=== PATIENT | male | born 1960 | race Caucasian/White ===

== ENCOUNTER 2017-04-28 14:45 | Emergency (ER) | payer SELFPAY ==
[~2017-04-28] VITALS: Ht 182.9 cm; Wt 68.0 kg
[~2017-04-28 14:45] MED LIST: IBUP600T26 PO
[2017-04-28 14:47] VITALS: BP 167/112; PULSE 91; RESP 20; TEMP 98.5; O2SAT 98
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
[2017-04-28] MEDS ORDERED: BACT800T5 PO (15:10)
== END 2017-04-28 15:52 | disposition home or self-care (01) ==
LOC: NEPK 14:45
DX: L03.115 Cellulitis of right lower limb (principal); S80.812A Abrasion, left lower leg, initial encounter; S80.811A Abrasion, right lower leg, initial encounter; Z79.899 Other long term (current) drug therapy; X58.XXXA Exposure to other specified factors, initial encounter
CPT/HCPCS: 99283

== ENCOUNTER 2017-06-18 18:53 | Emergency (ER) | payer SELFPAY ==
[~2017-06-18] VITALS: Ht 182.9 cm; Wt 77.0 kg
[~2017-06-18 18:53] MED LIST changes: +BACT800T5 PO
[2017-06-18 18:55] VITALS: BP 144/96; PULSE 85; RESP 16; TEMP 98.6; O2SAT 98
[2017-06-18] MEDS ORDERED: KETOROLAC TROMETHAMINE 60 MG/2 ML (IM) VIAL IM ONE (19:30)
[2017-06-18] MEDS ORDERED: ceFAZolin INJ 1,000 MG VIAL IM ONE (19:30)
[2017-06-18] MEDS ORDERED: MUPI2OIN TOPICAL (19:32)
[2017-06-18] MEDS ORDERED: IBUP800T23 PO (19:32)
[2017-06-18] MEDS ORDERED: BACT800T5 PO (19:32)
[2017-06-18] MEDS ORDERED: CEPH-460 PO (19:32)
--- NOTE | 2017-06-18 19:32 | PD ---
HPI Chief Complaint: Skin Problem Time Seen by Provider: 19:18 Travel History International Travel<30 days: No Contact w/Intl Traveler<30days: No Traveled to known affect area: No History of Present Illness HPI Patient is a 37-year-old male presenting for evaluation of left knee redness and pain. Patient states since 1 PM this afternoon he has had increasing redness to the left knee. He states it's painful and warm to the touch. He denies any fever, chills, nausea, vomiting, headache. He reports a history of same in April. He denies any significant past medical history. Patient has a small abrasion in the center of the area of redness. He denies any trauma to the knee itself. Patient reports pain is a 7/10 and describes it as sore and aching. PFSH Past Medical History Medical History: Denies Significant Hx Diminished Hearing: No Inguinal Hernia: Yes Immunizations Current: Yes Tetanus Vaccination: < 5 Years Past Surgical History Abdominal Surgery: Yes (HERNIA ) Other Surgery: Yes ( NOSE) Social History Alcohol Use: Yes (OCCASSIONALLY) Tobacco Use: No Substance Use: No Allergies-Medications (Allergen,Severity, Reaction): Coded Allergies: No Known Allergies (Unverified , 06/18/17) Reported Meds & Prescriptions Reported Meds & Active Scripts Active No Active Prescriptions or Reported Medications Review of Systems Except as stated in HPI: all other systems reviewed are Neg Musculoskeletal: Positive: Pain Skin: Positive Change in Pigmentation, Positive Lesions Physical Exam Narrative GENERAL: Well-developed, well-nourished, alert male. Resting comfortably in no acute distress. SKIN: Warm and dry. 17 cm x 10 cm area of erythema medial and distal to the left knee. There is a 3 mm pustule in the center. Otherwise there is no fluctuance appreciated. It is warm to the touch a moderately tender to palpation. HEAD: Normocephalic. EYES: No scleral icterus. No injection or drainage. NECK: Supple, trachea midline. No JVD or lymphadenopathy. CARDIOVASCULAR: Regular rate and rhythm without murmurs, gallops, or rubs. RESPIRATORY: Breath sounds equal bilaterally. No accessory muscle use. GASTROINTESTINAL: Abdomen soft, non-tender, nondistended. MUSCULOSKELETAL: No cyanosis, or edema. No edema noted in the left calf, patient is neurovascularly intact with negative Homans sign. BACK: Nontender without obvious deformity. No CVA tenderness. Data Data Last Documented VS Vital Signs Date Time Temp Pulse Resp B/P (MAP) Pulse Ox O2 Delivery O2 Flow Rate FiO2 06/18/17 18:55 98.6 85 16 144/96 (112) 98 Orders Orders Wound Culture And Gram Stain (06/18/17 19:16) Cefazolin Inj (Ancef Inj) (06/18/17 19:30) Ketorolac Inj (Toradol Inj) (06/18/17 19:30) MDM Medical Decision Making Medical Screen Exam Complete: Yes Emergency Medical Condition: Yes Medical Record Reviewed: Yes Interpretation(s) Vital Signs Date Time Temp Pulse Resp B/P (MAP) Pulse Ox O2 Delivery O2 Flow Rate FiO2 06/18/17 18:55 98.6 85 16 144/96 (112) 98 Differential Diagnosis Cellulitis versus abscess versus contact dermatitis versus septic arthritis versus other Narrative Course Patient is a 57-year-old male presenting for evaluation of left knee redness and pain. Physical examination appears consistent with cellulitis, the knee itself is not swollen the area of redness is more medial and distal. Area was marked. Patient's vital signs are stable, he is afebrile and he is not tachycardic. Patient will be given dose of Ancef in the emergency department. A wound culture has been obtained and is pending. Patient was also given Toradol for pain. Patient was advised to return to emergency department immediately for any new or worsening symptoms. He was advised to return if area of redness continued to increase despite being on antibiotic therapy. He was encouraged to rest, elevate extremity. He was encouraged to avoid exacerbating activities. He verbalized understanding of these instructions. Patient is stable for discharge. Diagnosis Primary Impression: Cellulitis of skin Referrals: Primary Care Physician 1 day Patient Instructions: Cellulitis (ED), General Instructions Additional Instructions: Follow-up with your primary doctor in 1-2 days Complete full course of antibiotics as prescribed Keep leg elevated Return to emergency department immediately for any new or worsening symptoms or if symptoms do not improve despite being on antibiotic therapy Med/Other Pt SpecificInfo: Prescription(s) given Scripts Ibuprofen (Ibuprofen) 800 Mg Tab 800 MG PO Q6HR Y for PAIN, #40 TAB 0 Refills Prov: Katie Couch 06/18/17 Mupirocin Topical (Mupirocin Topical) 2 % Oint 1 APPLIC TOPICAL BID for Mgmt Bacterial Infection, #22 GM 0 Refills Prov: Katie Couch 06/18/17 Cephalexin (Keflex) 500 Mg Cap 500 MG PO Q12H for Infection for 10 Days, CAP 0 Refills Prov: Katie Couch 06/18/17 Sulfamethoxazole-Trimethoprim (Bactrim DS) 800-160 Mg Tab 1 TAB PO BID for Infection, #20 TAB 0 Refills Prov: Katie Couch 06/18/17 Disposition: 01 DISCHARGE HOME Condition: Stable Katie Couch Jun 18, 2017 19:32
== END 2017-06-18 20:07 | disposition home or self-care (01) ==
LOC: NEPK 18:53
DX: L03.116 Cellulitis of left lower limb (principal); A49.02 Methicillin resistant Staphylococcus aureus infection, unspecified site
CPT/HCPCS: 86403; 87070; 87186; 96372; 96374; 99284; J0690; J1885; 87205

== ENCOUNTER 2018-07-18 20:23 | Observation (INO) ==
[2018-07-18 21:17] LABS: Baso # (Auto) 0.1 th/mm3 (0.0-0.2); Baso % (Auto) 0.5 % (0.0-2.0); Eos % (Auto) 0.1 % (0.0-4.0); Hematocrit 39.2 % (39.0-51.0); Hemoglobin 13.2 gm/dL (13.0-17.0); Lymph # (Auto) 0.9 th/mm3 (1.0-4.8); Lymph % (Auto) 7.9 % (9.0-44.0); Mean Corpuscular HGB Conc 33.8 % (32.0-36.0); Mean Corpuscular Hemoglobin 31.2 pg (27.0-34.0); Mean Corpuscular Volume 92.4 fL (80.0-100.0); Mean Platelet Volume 8.7 fL (7.0-11.0); Mono # (Auto) 0.5 th/mm3 (0.0-0.9); Mono % (Auto) 4.4 % (0.0-8.0); Neut # (Auto) 9.6 th/mm3 (1.8-7.7); Neut % (Auto) 87.1 % (16.0-70.0); Platelet Count 162 th/mm3 (150-450); Red Blood Count 4.25 mil/mm3 (4.50-5.90); Red Cell Distribution Width 16.8 % (11.6-17.2)
[2018-07-18 21:29] LABS: Activated Partial Thrombo Time 21.7 sec (24.3-30.1); INR 1.1 Ratio; Prothrombin Time 11.3 sec (9.8-11.6)
--- NOTE | 2018-07-18 21:32 | XR ---
EXAM DATE: 07/18/2018 8:52 PM EDT AGE/SEX: 58 years / Male INDICATIONS: Chest pain. CLINICAL DATA: This is the patient's initial encounter. Patient reports that signs and symptoms have been present for 1 day and indicates a pain score of 0/10. MEDICAL/SURGICAL HISTORY: None. None. COMPARISON: [facility] [place] [facility] [place], 05/28/2016. . FINDINGS: A single AP view of the chest demonstrates the lungs to be symmetrically aerated without evidence of mass, infiltrate or effusion. The cardiomediastinal contours are unremarkable. Osseous structures a re intact. CONCLUSION: No evidence of acute cardiopulmonary disease. Electronically signed by: Adin Garcia MD 07/18/2018 9:30 PM EDT
[2018-07-18 21:36] LABS: Alanine Aminotransferase 40 U/L (12-78); Albumin 3.5 g/dL (3.4-5.0); Anion Gap 15 meq/L (5-15); Aspartate Aminotransferase 46 U/L (15-37); Blood Urea Nitrogen 5 mg/dL (7-18); Calcium 7.8 mg/dL (8.5-10.1); Carbon Dioxide 23.7 meq/L (21.0-32.0); Chloride 99 meq/L (98-107); Glomerular Filtration Rate Greater Than 89 mL/min (>89); Glucose,Random 71 mg/dL (74-106); Potassium 3.2 meq/L (3.5-5.1); Sodium 138 meq/L (136-145)
[2018-07-18 21:40] LABS: Alkaline Phosphatase 61 U/L (45-117); Creatine Kinase 308 U/L (39-308); Total Protein 6.8 g/dL (6.4-8.2)
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
[2018-07-18] MEDS ORDERED: Famotidine PF Inj 20 MG/2 ML Vial IV.PUSH ONE (21:56)
[2018-07-18] MEDS ORDERED: Acetaminophen 500 MG Tablet PO ONE (21:56)
[2018-07-18 23:28] LABS: Creatine Kinase 280 U/L (39-308)
[2018-07-19 03:53] LABS: Creatine Kinase 254 U/L (39-308)
[2018-07-19] MEDS ORDERED: Potassium Chloride 10 MEQ ER Capsule PO ONE (08:03)
[2018-07-19] MEDS ORDERED: Haloperidol Inj 5 MG/ML Ampul IV.PUSH PRN (08:36)
[2018-07-19] MEDS ORDERED: Sodium Chloride 0.9% 2 ML Flush PRN IV.FLUSH (08:52)
[2018-07-19] MEDS: Sodium Chloride 0.9% 2 ML Flush BID IV.FLUSH SCH ×2 (09:49→20:23)
[2018-07-19] MEDS ORDERED: Regadenoson Inj 0.4 MG/5 ML Syringe IV.PUSH ONE (09:52)
--- NOTE | 2018-07-19 10:30 | P.HPCA ---
History of Present Illness Primary Care Physician: Terri Lund MD Chief Complaint: Chest pain History of Present Illness: This is a 58-year-old male that presents to ED with a complaint of yesterday developing a sharp left-sided chest discomfort while mowing his neighbor's yard. He was short of breath and nauseous. Denies any noticeable diaphoresis. States lasted about 20-30 minutes. 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 Cannot recall prior cardiac workup but states his heart disease in his family however it is late onset. States that his mother of heart failure but in her 80s. Currently denies discomforts. Denies hypertension, hyperlipidemia, diabetes, and CAD. Admits to alcohol abuse. His mother at age 84 of heart failure. Drinks on average 4-6 16 ounce beers daily. Denies illicit drug use. Quit smoking 1 year ago. Prior to that he smoked on average 2 cigarettes a day for about a year and a half. - Diagnosis (1) Chest pain (2) Alcohol abuse Review of Systems General: Patient denies fevers, chills, and recent travel. HEENT: Patient denies headache, sore throat, difficulty swallowing. Cardiovascular: Has the chest discomfort as mentioned above. Denies sensation of heart beating rapidly or irregularly. No syncope. Denies diaphoresis. Respiratory: He was short of breath. Denies inspirational chest discomfort. Denies coughing wheezing or hemoptysis. GI: He was nauseous. Patient denies vomiting, diarrhea, abdominal pain, bloody stools. Musculoskeletal: Patient denies joint pain or edema. Denies calf pain or edema. Neurovascular: Patient denies numbness, tingling, weakness in extremities. Denies headache. Endocrine: Denies polyuria and polydipsia. Hematologic: Denies easy bruising. Skin: Denies rash or itching. PMFSH - History History Provided By: Patient - Medical History Medical History: Medical History (Last Updated 07/18/18 @ 20:39 by Michelle Napier RN) Patient denies medical problems - Surgical History Surgical History: Surgical History (Last Updated 07/18/18 @ 20:39 by Michelle Napier RN) No history of previous surgery - Tobacco History Second Hand Smoke Exposure: No Tobacco Use In Past 30 Days: No Smoking Status: Former smoker Tobacco Type: Cigarettes - Alcohol History How Often Do You Have a Drink Containing Alcohol: 4 or more times a week - Substance Use History Substance History: No History of Abuse - Travel History Recent Travel in the [place] Within the Last 8 Weeks: No Recent Travel Out of the Country Within the Last 8 Weeks: No - Immunization History Tetanus Immunization: <5 Years Medications and Allergies Active Medications: Active Medications Flumazenil (Romazecon Inj) 0.2 mg IV.PUSH Q1M PRN PRN Reason: OVERSEDATION Haloperidol Lactate (Haldol Inj) 1 mg IV.PUSH Q15M PRN PRN Reason: for severe agitation Lorazepam (Ativan) 1 mg PO Q4H PRN PRN Reason: for CIWA 8-10 Lorazepam (Ativan) 2 mg PO Q2H PRN PRN Reason: for CIWA 11-14 Lorazepam (Ativan Inj) 2 mg IV.PUSH Q2H PRN PRN Reason: for CIWA 11-14 Last Admin: 07/19/18 08:57 Dose: 2 mg Lorazepam (Ativan Inj) 2 mg IV.PUSH Q1H PRN PRN Reason: for CIWA 15-20 Lorazepam (Ativan Inj) 2 mg IV.PUSH Q15M PRN PRN Reason: for CIWA > 20 Lorazepam (Ativan Inj) 1 mg IV.PUSH Q4H PRN PRN Reason: for CIWA 8-10 Sodium Chloride (Ns Flush) 2 ml IV.FLUSH BID CHEL Last Admin: 07/19/18 09:49 Dose: 2 ml Sodium Chloride (Ns Flush) 2 ml IV.FLUSH PRN PRN PRN Reason: FLUSH AFTER USING IV ACCESS Allergies Allergy/AdvReac Type Severity Reaction Status Date / Time No Known Allergies Allergy Uncoded 06/18/17 19:16 Home Medications Medication Instructions Recorded Confirmed Type trazodone 50 mg PO HS PRN 07/19/18 07/19/18 History Exam Vital signs: Vital Signs 07/18/18 20:38 07/18/18 21:36 07/18/18 23:38 Temperature 99.8 F H Pulse Rate 106 H 82 Respiratory Rate 20 18 16 Blood Pressure 163/101 H 148/86 H Pulse Oximetry 97 97 07/19/18 00:00 07/19/18 04:00 07/19/18 04:33 Temperature 98.5 F 98.5 F Pulse Rate 31 L 59 L 60 Respiratory Rate 16 18 Blood Pressure 120/82 117/71 Pulse Oximetry 95 98 07/19/18 07:58 07/19/18 08:00 Temperature 100.1 F H Pulse Rate 76 Respiratory Rate 16 Blood Pressure 145/94 H Pulse Oximetry 96 97 Intake & Output 07/18/18 07/19/18 07/19/18 18:59 06:59 18:59 Weight 72 kg Other: # Voids 2 Date of Last Bowel Movement 07/19/18 Narrative: GENERAL: He is a little tremulous during examination. This is a well-nourished , well-developed patient, in no apparent distress. Patient speaks in clear complete sentences. Patient is pleasant. HEENT: Head is atraumatic and normocephalic. Neck is supple without lymphadenopathy and trachea is midline. No JVD or carotid bruits. CARDIOVASCULAR: Regular rate and rhythm without murmurs, gallops, or rubs. RESPIRATORY: Clear to auscultation. Breath sounds equal bilaterally. No wheezes , rales, or rhonchi. Chest wall is nontender. No use of accessory muscles. GASTROINTESTINAL: Abdomen is nontender, nondistended. Abdomen soft. No obvious pulsatile mass or bruit. No CVA tenderness. Strong femoral pulses bilaterally. Normal bowel sounds in all quadrants. MUSCULOSKELETAL: Patient is moving upper and lower extremities freely. No calf tenderness or edema, no Homans sign. Strong pulses in upper and lower extremities. NEUROLOGICAL: Patient is alert and oriented. Cranial nerves 2-12 are grossly intact. No focal deficits and speech is clear. SKIN: No rash and turgor is normal. Results 07/18/18 21:00 07/18/18 21:00 Cardiac Enzymes 07/18/18 07/18/18 07/18/18 Range/Units 21:00 21:00 22:55 AST 46 H (15-37) U/L CK-MB (CK-2) 2.0 (0.5-3.6) ng/mL Troponin I Less than 0.02 L Less than 0.02 L (0.02-0.05) ng/mL B-Natriuretic Peptide 62 (0-100) pg/mL 07/19/18 Range/Units 03:15 AST (15-37) U/L CK-MB (CK-2) (0.5-3.6) ng/mL Troponin I Less than 0.02 L (0.02-0.05) ng/mL B-Natriuretic Peptide (0-100) pg/mL Coagulation 07/18/18 07/18/18 Range/Units 21:00 21:00 PT 11.3 (9.8-11.6) sec APTT 21.7 L (24.3-30.1) sec B-Natriuretic Peptide 62 (0-100) pg/mL CBC 07/18/18 Range/Units 21:00 WBC 11.0 (4.0-11.0) th/mm3 RBC 4.25 L (4.50-5.90) mil/mm3 Hgb 13.2 (13.0-17.0) gm/dL Hct 39.2 (39.0-51.0) % Plt Count 162 (150-450) th/mm3 Neut # (Auto) 9.6 H (1.8-7.7) th/mm3 Lymph # (Auto) 0.9 L (1.0-4.8) th/mm3 [place] # (Auto) 0.5 (0.0-0.9) th/mm3 Eos # (Auto) 0.0 (0.0-0.4) th/mm3 Baso # (Auto) 0.1 (0.0-0.2) th/mm3 Comprehensive Metabolic Panel 07/18/18 Range/Units 21:00 Sodium 138 (136-145) meq/L Potassium 3.2 L (3.5-5.1) meq/L Chloride 99 (98-107) meq/L Carbon Dioxide 23.7 (21.0-32.0) meq/L BUN 5 L (7-18) mg/dL Creatinine 0.58 L (0.60-1.30) mg/dL Calcium 7.8 L (8.5-10.1) mg/dL AST 46 H (15-37) U/L ALT 40 (12-78) U/L Alkaline Phosphatase 61 (45-117) U/L Total Protein 6.8 (6.4-8.2) g/dL Albumin 3.5 (3.4-5.0) g/dL Intake and Output 07/18/18 07/19/18 07/19/18 22:59 06:59 14:59 Other: # Voids 2 Date of Last Bowel Movement 07/19/18 Weight 72 kg - Imaging and Cardiology Imaging: Impressions Chest X-Ray 07/18/18 20:52 CONCLUSION: No evidence of acute cardiopulmonary disease. EKG interpretations - EKG EKG shows: bradycardia (EKGs are sinus rhythm sinus bradycardia without significant ST segment depressions or elevations.), sinus rhythm Caprini VTE Risk Assessment Caprini VTE Risk Assessment: No/Low Risk (score <= 1) Caprini Risk Assessment Model: Point Value = 1 Point Value = 2 Point Value = 3 Point Value = 5 Age 41-60 Minor surgery BMI > 25 kg/m2 Swollen legs Varicose veins or History of unexplained or recurrent spontaneous Oral contraceptives or hormone replacement Sepsis (< 1 month) Serious lung disease, including pneumonia (< 1 month) Abnormal pulmonary function Acute myocardial infarction Congestive heart failure (< 1 month) History of inflammatory bowel disease Medical patient at bed rest Age 61-74 Arthroscopic surgery Major open surgery (> 45 min) Laparoscopic surgery (> 45 min) Malignancy Confined to bed (> 72 hours) Immobilizing plaster cast Central venous access Age >= 75 History of VTE Family history of VTE Factor V Leiden Prothrombin [id number] Lupus anticoagulant Anticardiolipin antibodies Elevated serum homocysteine Heparin-induced thrombocytopenia Other congenital or acquired thrombophilia Stroke (< 1 month) Elective arthroplasty Hip, pelvis, or leg fracture Acute spinal cord injury (< 1 month) Prophylaxis Regimen: Total Risk Factor Score Risk Level Prophylaxis Regimen 0-1 Low Early ambulation 2 Moderate Order ONE of the following: *Sequential Compression Device (SCD) *Heparin 5000 units SQ BID 3-4 Higher Order ONE of the following medications: *Heparin 5000 units SQ TID *Enoxaparin/Lovenox 40 mg SQ daily (WT < 150 kg, CrCl > 30 mL/min) *Enoxaparin/Lovenox 30 mg SQ daily (WT < 150 kg, CrCl > 10-29 mL/min) *Enoxaparin/Lovenox 30 mg SQ BID (WT < 150 kg, CrCl > 30 mL/min) AND/OR *Sequential Compression Device (SCD) 5 or more Highest Order ONE of the following medications: *Heparin 5000 units SQ TID (Preferred with Epidurals) *Enoxaparin/Lovenox 40 mg SQ daily (WT < 150 kg, CrCl > 30 mL/min) *Enoxaparin/Lovenox 30 mg SQ daily (WT < 150 kg, CrCl > 10-29 mL/min) *Enoxaparin/Lovenox 30 mg SQ BID (WT < 150 kg, CrCl > 30 mL/min) AND *Sequential Compression Device (SCD) Assessment and Plan - Assessment (1) Chest pain Code(s): R07.9 - Chest pain, unspecified Status: Acute (2) Alcohol abuse Code(s): F10.10 - Alcohol abuse, uncomplicated Status: Acute - Plan * Chest pain: Patient has had serial cardiac enzymes and EKGs for ruling out purposes. He will be seen by Dr. Wen cardiology in the chest pain center. Will undergo a Lexiscan. Be discharged home if the stress test is nonischemic with instructions to follow-up with PCP and return to ED for interval issues. * Alcohol abuse: We will use CIWA precautions. He needs to get help with his alcohol abuse. Patient is stable at this time. Is agreeable to this plan. H&P: Quality - VTE Deep Vein Thrombosis/Pulmonary Embolism Present on Admission: No
--- NOTE | 2018-07-19 12:05 | NM ---
EXAM DATE: 07/19/2018 9:46 AM EDT AGE/SEX: 58 years / Male INDICATIONS:Angina. . Left chest pain. CLINICAL DATA: This is the patient's initial encounter. Patient reports that signs and symptoms have been present for 1 day and indicates a pain score of 6/10. MEDICAL/SURGICAL HISTORY: None. None. COMPARISON: . DOSE: 8.8 mCi Tc 99m Myoview at rest 27.4 mCi [id number] at stress 0.4 mg Lexiscan STRESS SYMPTOMS: Weird feeling and abdominal pressure. EJECTION FRACTION: 65 % TECHNIQUE: The patient underwent pharmacologic stress with infusion of prescribed dose. Continuous ECG tracing was monitored during stress. Gated SPECT imaging was performed after stress and conventi onal SPECT imaging was performed at rest. The examination was performed on a SPECT/CT scanner, both attenuation and non-corrected datasets were reviewed. FINDINGS: Distribution: The maximum perfused segment at stress is in the inferior wall. There is less activity seen in the anterior septal tristan and portions of the apical inferior wall on the stress and rest im ages compared to the lateral wall and remaining aspect of the inferior wall. Perfusion Study: There is an area of mild increased signal on the rest images at the apical septum compared to the stress images. The perfusion otherwise appears better on the stress images throughout . Gated Study: There are intact wall motion and wall thickening without hypokinetic or dyskinetic segm ents. The ejection fraction is calculated at 65%. RISK CATEGORY: Low (<1% Annual Motality Rate) CONCLUSION: 1. Small area of mild increased activity in the apical portion of the septum on the rest images over the stress images which is borderline for a small area of ischemia. 2. The ejection fraction is normal. Electronically signed by: Adin Marr MD 07/19/2018 12:04 PM EDT
--- NOTE | 2018-07-19 13:36 | ECG ---
Date Performed: 07/19/2018 Time Performed: 03:00:02 PTAGE: 58 years EKG: SINUS BRADYCARDIA WITH SINUS ARRHYTHMIA PROLONGED QT INTERVAL ABNORMAL ECG PREVIOUS TRACING : 07/18/2018 23.15 Compared to previous tracing,QT interval is prolonged. DOCTOR: Jerry Wen Interpretating Date/Time 07/19/2018 13:34:46
--- NOTE | 2018-07-19 13:41 | ECG ---
Date Performed: 07/18/2018 Time Performed: 23:15:38 PTAGE: 58 years EKG: Sinus rhythm PROLONGED QT INTERVAL ABNORMAL ECG PREVIOUS TRACING : 07/18/2018 20.43 Since previous tracing, no significant change noted DOCTOR: Jerry Wen Interpretating Date/Time 07/19/2018 13:40:31
--- NOTE | 2018-07-19 13:44 | ECG ---
Date Performed: 07/18/2018 Time Performed: 20:43:29 PTAGE: 58 years EKG: SINUS TACHYCARDIA ABNORMAL RHYTHM ECG INTERPRETATION BASED ON A DEFAULT AGE OF 40 YEARS NO PREVIOUS TRACING DOCTOR: Jerry Wen Interpretating Date/Time 07/19/2018 13:42:09
[2018-07-19] MEDS: Metoprolol Tartrate 25 MG Tablet PO SCH ×2 (13:51→20:22)
--- NOTE | 2018-07-19 14:03 | TR ---
Date Performed: 07/19/2018 Time Performed: 10:23:04 DOCTOR: Jerry Wen DRUG LIST: CLINICAL HISTORY: REASON FOR TEST: CHEST PAIN REASON FOR ENDING: OBSERVATION: CONCLUSION: COMMENTS: Lexiscan stress test was performed under standard four minute protocol. Radionuclide was injected one minute prior to ending the test. No electrocardiographic abormalities were present t o suggest ischemia. Nuclear imaging and interpretation are pending.
--- NOTE | 2018-07-19 14:09 | P.PNIM ---
Subjective Interval history: in no acute distress. currently chest pain free and with no sob. had a low-grade fever earlier. complaining of weak urine stream but with no dysuria. Physical Exam Vital signs: Vital Signs 07/18/18 20:38 07/18/18 21:36 07/18/18 23:38 Temperature 99.8 F H Pulse Rate 106 H 82 Respiratory Rate 20 18 16 Blood Pressure 163/101 H 148/86 H Pulse Oximetry 97 97 07/19/18 00:00 07/19/18 04:00 07/19/18 04:33 Temperature 98.5 F 98.5 F Pulse Rate 31 L 59 L 60 Respiratory Rate 16 18 Blood Pressure 120/82 117/71 Pulse Oximetry 95 98 07/19/18 07:58 07/19/18 08:00 Temperature 100.1 F H Pulse Rate 77 Respiratory Rate 16 Blood Pressure 145/94 H Pulse Oximetry 96 97 Intake & Output 07/18/18 07/19/18 07/19/18 18:59 06:59 18:59 Weight 72 kg Other: # Voids 2 Date of Last Bowel Movement 07/19/18 - Constitutional no acute distress - Routine Respiratory Exam Present: CTA bilaterally - Routine Cardiovascular Exam Present: RRR - Routine Abdominal Exam Present: soft - Routine Extremities Exam Comments: no pedal edema. - Routine Neurological Exam Present: alert, oriented X3 Results - Labs CBC & Chem 7: 07/18/18 21:00 07/18/18 21:00 Laboratory Results - last 24 hr 07/18/18 07/18/18 07/18/18 21:00 21:00 21:00 WBC 11.0 RBC 4.25 L Hgb 13.2 Hct 39.2 MCV 92.4 MCH 31.2 MCHC 33.8 RDW 16.8 Plt Count 162 MPV 8.7 Neut % (Auto) 87.1 H Lymph % (Auto) 7.9 L [place] % (Auto) 4.4 Eos % (Auto) 0.1 Baso % (Auto) 0.5 Neut # (Auto) 9.6 H Lymph # (Auto) 0.9 L [place] # (Auto) 0.5 Eos # (Auto) 0.0 Baso # (Auto) 0.1 WBC Differential . Differential Comment Auto diff final PT INR APTT Sodium 138 Potassium 3.2 L Chloride 99 Carbon Dioxide 23.7 Anion Gap 15 BUN 5 L Creatinine 0.58 L Estimated GFR Greater than 89 Random Glucose 71 L Calcium 7.8 L Total Bilirubin 0.7 AST 46 H ALT 40 Alkaline Phosphatase 61 Total Creatine Kinase 308 CK-MB (CK-2) 2.0 Troponin I Less than 0.02 L B-Natriuretic Peptide 62 Total Protein 6.8 Albumin 3.5 07/18/18 07/18/18 07/19/18 21:00 22:55 03:15 WBC RBC Hgb Hct MCV MCH MCHC RDW Plt Count MPV Neut % (Auto) Lymph % (Auto) [place] % (Auto) Eos % (Auto) Baso % (Auto) Neut # (Auto) Lymph # (Auto) [place] # (Auto) Eos # (Auto) Baso # (Auto) WBC Differential Differential Comment PT 11.3 INR 1.1 APTT 21.7 L Sodium Potassium Chloride Carbon Dioxide Anion Gap BUN Creatinine Estimated GFR Random Glucose Calcium Total Bilirubin AST ALT Alkaline Phosphatase Total Creatine Kinase 280 254 CK-MB (CK-2) Troponin I Less than 0.02 L Less than 0.02 L B-Natriuretic Peptide Total Protein Albumin - Imaging Impressions Chest X-Ray 07/18/18 20:52 CONCLUSION: No evidence of acute cardiopulmonary disease. Myocardial Perfusion Scan Nuc Med 07/19/18 08:37 CONCLUSION: 1. Small area of mild increased activity in the apical portion of the septum on the rest images over the stress images which is borderline for a small area of ischemia. 2. The ejection fraction is normal. Assessment and Plan - Plan A/P chest pain- currently pain free serial troponin negative and EKG with no acute ST-T changes- stress test with small area of ischemia ; apical portion of the septum continue aspirin and metoprolol- cardiology consulted. low grade fever- will check UA. Discussed Condition With: the patient and chest pain center PAJosh
[2018-07-19] MEDS ORDERED: Loperamide 2 MG Capsule PO PRN (15:55)
[2018-07-19 16:49] LABS: Bilirubin,Urine Negative (Negative); Clarity,Urine Clear (Clear); Color,Urine Yellow (Yellw/Straw); Glucose,Urine (UA) Negative (Negative); Leukocyte Esterase,Urine Negative (Negative); Mucus,Urine Few /lpf (Occasional); Nitrite,Urine Negative (Negative); Specific Gravity,Urine 1.024 (1.002-1.035); Squamous Epithelial Cell,Urine <1 /hpf (0-5)
[2018-07-19] MEDS: Acetaminophen 325 MG Tablet PO PRN (17:05)
[2018-07-19] MEDS: Thiamine Inj 100 MG in Sodium Chlor 0.9% Inj 100 ML IV.SIG SCH (18:14)
[2018-07-19] MEDS: Multivitamin Inj 10 ML, Folic Acid Inj 1 MG in Sodium Chlor 0.9% Inj 500 ML IV.SIG SCH (20:23)
[2018-07-20] MEDS: Acetaminophen 325 MG Tablet PO PRN (01:26)
[2018-07-20 07:53] LABS: Baso % (Auto) 0.3 % (0.0-2.0); Eos % (Auto) 0.6 % (0.0-4.0); Hematocrit 45.2 % (39.0-51.0); Hemoglobin 15.2 gm/dL (13.0-17.0); Lymph # (Auto) 0.8 th/mm3 (1.0-4.8); Lymph % (Auto) 13.7 % (9.0-44.0); Mean Corpuscular HGB Conc 33.5 % (32.0-36.0); Mean Corpuscular Hemoglobin 31.5 pg (27.0-34.0); Mono # (Auto) 0.4 th/mm3 (0.0-0.9); Mono % (Auto) 7.1 % (0.0-8.0); Neut # (Auto) 4.3 th/mm3 (1.8-7.7); Neut % (Auto) 78.3 % (16.0-70.0); Platelet Count 116 th/mm3 (150-450); Red Blood Count 4.81 mil/mm3 (4.50-5.90); Red Cell Distribution Width 17.2 % (11.6-17.2); White Blood Count 5.5 th/mm3 (4.0-11.0)
[2018-07-20 08:12] LABS: Albumin 3.3 g/dL (3.4-5.0); Anion Gap 7 meq/L (5-15); Aspartate Aminotransferase 30 U/L (15-37); Blood Urea Nitrogen 7 mg/dL (7-18); Calcium 8.6 mg/dL (8.5-10.1); Carbon Dioxide 33.2 meq/L (21.0-32.0); Chloride 98 meq/L (98-107); Glomerular Filtration Rate Greater Than 89 mL/min (>89); Glucose,Random 82 mg/dL (74-106); Sodium 138 meq/L (136-145)
[2018-07-20 08:14] LABS: Alanine Aminotransferase 33 U/L (12-78)
[2018-07-20 08:16] LABS: Alkaline Phosphatase 55 U/L (45-117); Total Protein 6.8 g/dL (6.4-8.2)
[2018-07-20] MEDS: LORazepam 1 MG Tablet PO PRN ×2 (08:33→14:42)
[2018-07-20] MEDS: Metoprolol Tartrate 25 MG Tablet PO SCH ×2 (08:33→21:04)
--- NOTE | 2018-07-20 08:33 | CT ---
EXAM DATE: 07/20/2018 4:35 AM EDT AGE/SEX: 58 years / Male INDICATIONS: Chest pain, left arm numbness and pain CLINICAL DATA: This is the patient's initial encounter. Patient reports that signs and symptoms have been present for 1 day and indicates a pain score of 0/10. MEDICAL/SURGICAL HISTORY: None. None. RADIATION DOSE: 9.42 CTDI (mGy) COMPARISON: . TECHNIQUE: Volumetric scanning was performed using a multi-row detector CT scanner during bolus infu jacinda of 70ML ml Omnipaque 350 (iohexol) nonionic water-soluble contrast as a single exam dose. The d eloy was post processed with a variety of visualization algorithms including full volume maximum inten sity projection and sliding thin slab reformation. Using automated exposure control and adjustment of the mA and/or kV according to patient size, radiation dose was kept as low as reasonably achievable to obtain optimal diagnostic quality images. DICOM format image data is available electronically for review and comparison. FINDINGS: Pulmonary Arteries: No filling defects are seen in the pulmonary arteries out to the subsegmental ve ssels. The left and right pulmonary arteries are normal in diameter. Lung: There is minimal linear density seen at the posterior lower lobes likely related to atelectasi s or scarring. Effusion: None. Mediastinum: No evidence of mediastinal or hilar adenopathy. Coronary artery calcification are prese nt. Other: The axilla is unremarkable. CONCLUSION: 1. No pulmonary embolus. 2. Minimal linear atelectasis or scarring at the lung bases. Electronically signed by: Adin Marr MD 07/20/2018 8:31 AM EDT
[2018-07-20] MEDS: Sodium Chloride 0.9% 2 ML Flush BID IV.FLUSH SCH ×2 (08:37→22:42)
--- NOTE | 2018-07-20 10:36 | P.PNIM ---
Subjective Interval history: f/u; chest pain/ fever in no acute distress. looks more comfortable today. had a fever spike last night but no fever today. diarrhea is better. no chest pain. Physical Exam Vital signs: Vital Signs 07/19/18 16:00 07/19/18 20:00 07/19/18 23:15 Temperature 101.3 F H 100.3 F H 101.8 F H Pulse Rate 86 78 77 Respiratory Rate 16 20 16 Blood Pressure 147/91 H 129/83 138/83 Pulse Oximetry 97 94 L 95 07/20/18 04:00 07/20/18 07:27 07/20/18 07:50 Temperature 98.4 F 97.9 F Pulse Rate 73 68 Respiratory Rate 18 16 Blood Pressure 143/98 H 129/84 Pulse Oximetry 98 98 98 07/20/18 08:00 Temperature Pulse Rate 54 L Respiratory Rate Blood Pressure Pulse Oximetry Intake & Output 07/19/18 07/20/18 07/20/18 18:59 06:59 18:59 Intake Total 611.2 / 611.2 620 / 620 Balance 611.2 / 611.2 620 / 620 Intake: IV 611.2 / 611.2 MVI-12 Inj 10 ML Folvite Inj 1 510.2 / 510.2 MG In NS Inj 500 ML @ 125 mls/ hr IV.SIG DAILY@2000 [facility] Rx#: [id number] Thiamine Inj 100 MG In NS Inj 101 / 101 100 ML @ 100 mls/hr IV.SIG DAILY@1800 [facility] Rx#:[id number] Oral 120 / 120 Other 500 / 500 Other: Other Intake Source Saline Solution # Voids 4 Date of Last Bowel Movement 07/19/18 07/19/18 07/19/18 - Constitutional no acute distress - Routine Respiratory Exam Present: CTA bilaterally - Routine Cardiovascular Exam Present: RRR - Routine Abdominal Exam Present: soft - Routine Extremities Exam Comments: no pedal edema. - Routine Neurological Exam Present: alert, oriented X3 Results - Labs CBC & Chem 7: 07/20/18 07:26 07/20/18 07:26 Laboratory Results - last 24 hr 07/19/18 07/19/18 07/20/18 15:43 16:30 07:26 WBC 5.5 RBC 4.81 Hgb 15.2 D Hct 45.2 MCV 94.0 MCH 31.5 MCHC 33.5 RDW 17.2 Plt Count 116 L MPV 9.0 Neut % (Auto) 78.3 H Lymph % (Auto) 13.7 [place] % (Auto) 7.1 Eos % (Auto) 0.6 Baso % (Auto) 0.3 Neut # (Auto) 4.3 Lymph # (Auto) 0.8 L [place] # (Auto) 0.4 Eos # (Auto) 0.0 Baso # (Auto) 0.0 WBC Differential . Differential Comment Auto diff final Sodium Potassium Chloride Carbon Dioxide Anion Gap BUN Creatinine Estimated GFR Random Glucose Calcium Total Bilirubin AST ALT Alkaline Phosphatase Total Protein Albumin Urine Color Yellow Urine Clarity Clear Urine pH 7.0 Ur Specific [place] 1.024 Urine Protein Negative Urine Glucose (UA) Negative Urine Ketones Trace H Urine Occult Blood Negative Urine Nitrate Negative Urine Bilirubin Negative Urine Urobilinogen 2.0 H Ur Leukocyte Esterase Negative Urine WBC 1 Ur Squamous Epith Cells <1 Urine Mucus Few H Micro UA Comment Culture not ind Ur Microscopic Review Not Reportable Urine Culture Comments Culture not ind Stl C.difficile DNA Amp Negative St C. diff Tox Epid 027 Negative 07/20/18 07:26 WBC RBC Hgb Hct MCV MCH MCHC RDW Plt Count MPV Neut % (Auto) Lymph % (Auto) [place] % (Auto) Eos % (Auto) Baso % (Auto) Neut # (Auto) Lymph # (Auto) [place] # (Auto) Eos # (Auto) Baso # (Auto) WBC Differential Differential Comment Sodium 138 Potassium 3.0 L Chloride 98 Carbon Dioxide 33.2 H D Anion Gap 7 BUN 7 Creatinine 0.66 Estimated GFR Greater than 89 Random Glucose 82 Calcium 8.6 D Total Bilirubin 0.5 AST 30 ALT 33 Alkaline Phosphatase 55 Total Protein 6.8 Albumin 3.3 L Urine Color Urine Clarity Urine pH Ur Specific [place] Urine Protein Urine Glucose (UA) Urine Ketones Urine Occult Blood Urine Nitrate Urine Bilirubin Urine Urobilinogen Ur Leukocyte Esterase Urine WBC Ur Squamous Epith Cells Urine Mucus Micro UA Comment Ur Microscopic Review Urine Culture Comments Stl C.difficile DNA Amp St C. diff Tox Epid 027 - Imaging Impressions Myocardial Perfusion Scan Nuc Med 07/19/18 08:37 CONCLUSION: 1. Small area of mild increased activity in the apical portion of the septum on the rest images over the stress images which is borderline for a small area of ischemia. 2. The ejection fraction is normal. Chest CTA 07/20/18 00:00 CONCLUSION: 1. No pulmonary embolus. 2. Minimal linear atelectasis or scarring at the lung bases. Assessment and Plan - Plan A/P chest pain- currently pain free serial troponin negative and EKG with no acute ST-T changes- CTA chest with no PE. stress test with small area of ischemia ; apical portion of the septum continue aspirin and metoprolol- cardiology consulted. fever/ diarrhea- alcohol withdrawal?-blood cultures pending; stool negative for [id number] today and diarrhea is better. Hypokalemia; will replace and monitor. Discharge Planning: dc home tomorrow if afebrile with negative blood cultures and if cleared by cardiology.
--- NOTE | 2018-07-20 13:00 | P.PN ---
Subjective Interval history: Feeling better today Physical Exam Vital signs: Vital Signs 07/19/18 16:00 07/19/18 20:00 07/19/18 23:15 Temperature 101.3 F H 100.3 F H 101.8 F H Pulse Rate 86 78 77 Respiratory Rate 16 20 16 Blood Pressure 147/91 H 129/83 138/83 Pulse Oximetry 97 94 L 95 07/20/18 04:00 07/20/18 07:27 07/20/18 07:50 Temperature 98.4 F 97.9 F Pulse Rate 73 68 Respiratory Rate 18 16 Blood Pressure 143/98 H 129/84 Pulse Oximetry 98 98 98 07/20/18 08:00 07/20/18 11:26 Temperature 98.9 F Pulse Rate 54 L 69 Respiratory Rate 16 Blood Pressure 132/83 Pulse Oximetry 96 Intake & Output 07/19/18 07/20/18 07/20/18 18:59 06:59 18:59 Intake Total 611.2 / 611.2 620 / 620 Balance 611.2 / 611.2 620 / 620 Intake: IV 611.2 / 611.2 MVI-12 Inj 10 ML Folvite Inj 1 510.2 / 510.2 MG In NS Inj 500 ML @ 125 mls/ hr IV.SIG DAILY@2000 [facility] Rx#: [id number] Thiamine Inj 100 MG In NS Inj 101 / 101 100 ML @ 100 mls/hr IV.SIG DAILY@1800 [facility] Rx#:[id number] Oral 120 / 120 Other 500 / 500 Other: Other Intake Source Saline Solution # Voids 4 Date of Last Bowel Movement 07/19/18 07/19/18 07/19/18 - Constitutional no acute distress - Routine HEENT Exam Head: Present: normocephalic Eye: Present: PERRL ENT: Present: mucous membranes moist - Routine Respiratory Exam Present: CTA bilaterally - Routine Abdominal Exam Present: soft - Routine Extremities Exam Present: normal capillary refill - Routine Skin Exam Present: intact - Routine Neurological Exam Present: alert, oriented X3 - Detailed Neurological Exam: Coma Scale Eye Opening: Spontaneous Verbal Response: Oriented Motor Response: Obey commands [place] Coma Scale Total: 15 Results - Labs CBC & Chem 7: 07/20/18 07:26 07/20/18 07:26 Laboratory Results - last 24 hr 07/19/18 07/19/18 07/20/18 15:43 16:30 07:26 WBC 5.5 RBC 4.81 Hgb 15.2 D Hct 45.2 MCV 94.0 MCH 31.5 MCHC 33.5 RDW 17.2 Plt Count 116 L MPV 9.0 Neut % (Auto) 78.3 H Lymph % (Auto) 13.7 [place] % (Auto) 7.1 Eos % (Auto) 0.6 Baso % (Auto) 0.3 Neut # (Auto) 4.3 Lymph # (Auto) 0.8 L [place] # (Auto) 0.4 Eos # (Auto) 0.0 Baso # (Auto) 0.0 WBC Differential . Differential Comment Auto diff final Sodium Potassium Chloride Carbon Dioxide Anion Gap BUN Creatinine Estimated GFR Random Glucose Calcium Total Bilirubin AST ALT Alkaline Phosphatase Total Protein Albumin Urine Color Yellow Urine Clarity Clear Urine pH 7.0 Ur Specific Boles 1.024 Urine Protein Negative Urine Glucose (UA) Negative Urine Ketones Trace H Urine Occult Blood Negative Urine Nitrate Negative Urine Bilirubin Negative Urine Urobilinogen 2.0 H Ur Leukocyte Esterase Negative Urine WBC 1 Ur Squamous Epith Cells <1 Urine Mucus Few H Micro UA Comment Culture not ind Ur Microscopic Review Not Reportable Urine Culture Comments Culture not ind Stl C.difficile DNA Amp Negative St C. diff Tox Epid 027 Negative 07/20/18 07:26 WBC RBC Hgb Hct MCV MCH MCHC RDW Plt Count MPV Neut % (Auto) Lymph % (Auto) [place] % (Auto) Eos % (Auto) Baso % (Auto) Neut # (Auto) Lymph # (Auto) [place] # (Auto) Eos # (Auto) Baso # (Auto) WBC Differential Differential Comment Sodium 138 Potassium 3.0 L Chloride 98 Carbon Dioxide 33.2 H D Anion Gap 7 BUN 7 Creatinine 0.66 Estimated GFR Greater than 89 Random Glucose 82 Calcium 8.6 D Total Bilirubin 0.5 AST 30 ALT 33 Alkaline Phosphatase 55 Total Protein 6.8 Albumin 3.3 L Urine Color Urine Clarity Urine pH Ur Specific Boles Urine Protein Urine Glucose (UA) Urine Ketones Urine Occult Blood Urine Nitrate Urine Bilirubin Urine Urobilinogen Ur Leukocyte Esterase Urine WBC Ur Squamous Epith Cells Urine Mucus Micro UA Comment Ur Microscopic Review Urine Culture Comments Stl C.difficile DNA Amp St C. diff Tox Epid 027 Microbiology 07/19/18 17:45 Blood - Peripheral Aerobic Blood Culture - Preliminary No growth in 1 day 07/19/18 17:45 Blood - Peripheral Anaerobic Blood Culture - Preliminary No growth in 1 day 07/19/18 17:40 Blood - Peripheral Aerobic Blood Culture - Preliminary No growth in 1 day 07/19/18 17:40 Blood - Peripheral Anaerobic Blood Culture - Preliminary No growth in 1 day - Imaging Impressions Chest CTA 07/20/18 00:00 CONCLUSION: 1. No pulmonary embolus. 2. Minimal linear atelectasis or scarring at the lung bases. Assessment and Plan - Assessment (1) Dizziness Code(s): R42 - Dizziness and giddiness Status: Acute Plan: No diarrhea. Dizziness improve Continue with current management (2) Chest pain Code(s): R07.9 - Chest pain, unspecified Status: Acute Plan: No chest pain Very active Minimal ischemia on nuclear stress study Medical management for now Follow up as OP I w3ill be available on a PRN basis Further decisions by the managing team
[2018-07-20] MEDS: Ciprofloxacin 500 MG Tablet PO SCH ×2 (14:42→21:04)
[2018-07-20] MEDS: Thiamine Inj 100 MG in Sodium Chlor 0.9% Inj 100 ML IV.SIG SCH (18:23)
[2018-07-20] MEDS: Multivitamin Inj 10 ML, Folic Acid Inj 1 MG in Sodium Chlor 0.9% Inj 500 ML IV.SIG SCH (21:18)
[2018-07-21 03:37] VITALS: RESP 18
[2018-07-21 07:29] VITALS: BP 118/83; TEMP 98.8; O2SAT 96
--- NOTE | 2018-07-21 07:31 | MB ---
cc: Ricardo Garcia MD DATE: 07/19/2018 REASON FOR CONSULTATION: Chest pain. HISTORY OF PRESENT ILLNESS: Mr. Larkin is a 58-year-old gentleman, very active, drinks around 6 beers a day. 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 Yesterday, he was mowing his neighbor's yard and began with left side pain. Also, he was having dizziness for at least 6 months. He feels like he was going to pass out. He went home. He explained that to a friend who recommended him to come to the emergency room. He was admitted. Nuclear stress test was performed, and I was consulted for further evaluation and management. The chart was reviewed. The patient was evaluated. ALLERGIES: NONE. SOCIAL HISTORY: The patient quit smoking around a year ago. Still drinks at least 6 beers a day. FAMILY HISTORY: Noncontributory to his current medical condition. MEDICATIONS: He was on none at home. In the hospital he was put on aspirin and metoprolol and Haldol p.r.n. REVIEW OF SYSTEMS: He refers feeling better. No chest pain or chest discomfort. Her refers having diarrhea and dizzy whenever he is going to the bathroom, but no chest pain, no jaw discomfort. PHYSICAL EXAMINATION: GENERAL: Alert, fully oriented. VITAL SIGNS: His blood pressure is 144/94, pulse 78, respiratory rate 18. LUNGS: Ventilated. CARDIOVASCULAR: S1, S2. No gallop. No murmur. ABDOMEN: Soft. No mass. No bruits. EXTREMITIES: No edema. ELECTROCARDIOGRAM: Sinus rhythm. No acute ST and T-wave changes. LABORATORY DATA: Hemoglobin is 13.2, white blood cell 11. INR 1.1. Potassium is a 3.2, creatinine 0.58. Troponin less than 0.02. ASSESSMENT AND RECOMMENDATIONS: Mr. Larkin is under a lot of stress. Apparently, the IRS sent him a letter with a 27,000 dollar bill and subsequently went to his account at [employer] and found there is no money left. Since then, he was under a lot of stress. At the same time, he refers having some dizziness in the past. Yesterday he mentioned the pain lasts for around 20-30 minutes, but not getting worse with exercise. He is doing lawn mowing for a living. Also, the gentleman rides his bicycle 15-20 miles a day with no chest pain. A nuclear stress test performed indicates a very small area of ischemia. I am not sure that this is attenuation or real ischemia. Troponin is negative. No acute ST changes on electrocardiogram. AT this point, my recommendation is to continue on aspirin. Observation. The gentleman is stable, he can be discharged home. Currently, he is complaining about diarrhea and wants to stay in the hospital for the next 24 hours. I will see him again if necessary. Case discussed with the chest pain center. Ricardo Garcia MD HS/ct , 03:43 PM , 03:53 PM
[2018-07-21 07:54] VITALS: PULSE 70
[2018-07-21] MEDS: Acetaminophen 325 MG Tablet PO PRN (08:25)
[2018-07-21] MEDS: Metoprolol Tartrate 25 MG Tablet PO SCH (08:26)
[2018-07-21] MEDS: Sodium Chloride 0.9% 2 ML Flush BID IV.FLUSH SCH (08:26)
[2018-07-21] MEDS: Ciprofloxacin 500 MG Tablet PO SCH (08:26)
--- NOTE | 2018-07-21 08:55 | P.PNIM ---
Subjective Interval history: f/u; chest pain/ diarrhea in no acute distress. looks comfortable. no chest pain or sob. diarrhea is better. no fever. Physical Exam Vital signs: Vital Signs 07/20/18 11:26 07/20/18 15:55 07/20/18 19:14 Temperature 98.9 F 99.1 F Pulse Rate 69 81 84 Respiratory Rate 16 16 18 Blood Pressure 132/83 118/76 135/89 Pulse Oximetry 96 98 97 07/21/18 00:00 07/21/18 03:36 07/21/18 07:27 Temperature 97.8 F 99.3 F 98.8 F Pulse Rate 73 80 84 Respiratory Rate 19 18 18 Blood Pressure 133/87 129/86 118/83 Pulse Oximetry 94 L 94 L 96 07/21/18 07:52 Temperature Pulse Rate 70 Respiratory Rate Blood Pressure Pulse Oximetry Intake & Output 07/20/18 07/21/18 07/21/18 18:59 06:59 18:59 Intake Total 620 / 620 971.2 / 971.2 Output Total 2320 / 2320 Balance 620 / 620 -1348.8 / -1348.8 Weight 73.03 kg Intake: IV 611.2 / 611.2 MVI-12 Inj 10 ML Folvite Inj 1 510.2 / 510.2 MG In NS Inj 500 ML @ 125 mls/ hr IV.SIG DAILY@2000 [facility] Rx#: [id number] Thiamine Inj 100 MG In NS Inj 101 / 101 100 ML @ 100 mls/hr IV.SIG DAILY@1800 [facility] Rx#:[id number] Oral 120 / 120 360 / 360 Other 500 / 500 Output: Urine 2320 / 2320 Other: Other Intake Source Saline Solution # Voids 4 Date of Last Bowel Movement 07/19/18 - Constitutional no acute distress - Routine Respiratory Exam Present: CTA bilaterally - Routine Cardiovascular Exam Present: RRR - Routine Abdominal Exam Present: soft - Routine Extremities Exam Comments: no pedal edema. - Routine Neurological Exam Present: alert, oriented X3 Results - Labs CBC & Chem 7: 07/20/18 07:26 07/21/18 06:41 Laboratory Results - last 24 hr 07/21/18 06:41 Potassium 3.5 Microbiology 07/19/18 16:30 Stool Enteric Pathogens (PCR) - Final Salmonella species 07/19/18 17:45 Blood - Peripheral Aerobic Blood Culture - Preliminary No growth in 1 day 07/19/18 17:45 Blood - Peripheral Anaerobic Blood Culture - Preliminary No growth in 1 day 07/19/18 17:40 Blood - Peripheral Aerobic Blood Culture - Preliminary No growth in 1 day 07/19/18 17:40 Blood - Peripheral Anaerobic Blood Culture - Preliminary No growth in 1 day Assessment and Plan - Plan A/P chest pain- currently pain free serial troponin negative and EKG with no acute ST-T changes- CTA chest with no PE. stress test with small area of ischemia ; apical portion of the septum continue aspirin and metoprolol- cardiology consulted and recommended medical treatment. Salmonella gastroenteritis; improved- will continue with Cipro. Alcohol withdrawal; better; continue thiamine and multivitamin- advised on drinking cessation. Hypokalemia; replaced. Discharge Planning: dc home today. see med list. f/u with pcp.
--- NOTE | 2018-07-21 08:57 | P.DS ---
Date of admission: 07/18/18 22:18 Primary care physician: Terri Lund MD Brief History from admission: This is a 58-year-old male that presents to ED with a complaint of yesterday developing a sharp left-sided chest discomfort while mowing his neighbor's yard. He was short of breath and nauseous. Denies any noticeable diaphoresis. States lasted about 20-30 minutes. 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 Cannot recall prior cardiac workup but states his heart disease in his family however it is late onset. States that his mother of heart failure but in her 80s. Currently denies discomforts. Denies hypertension, hyperlipidemia, diabetes, and CAD. Admits to alcohol abuse. His mother at age 84 of heart failure. Drinks on average 4-6 16 ounce beers daily. Denies illicit drug use. Quit smoking 1 year ago. Prior to that he smoked on average 2 cigarettes a day for about a year and a half. DS: Summary Hospital Course: patient was admitted with chest pain. stress test with small area of ischemia. cardiology consulted and recommended medical treatment. he was found to have salmonella enteritis for which he was started on Cipro. he was advised to stop drinking alcohol. he will have a f/u with his pcp. - Time Spent with Patient Total time spent providing and/or coordinating discharge services: Less than 30 minutes - Quality: VTE Deep Vein Thrombosis/Pulmonary Embolism Present on Admission: No Exam Vital signs: Vital Signs 07/20/18 11:26 07/20/18 15:55 07/20/18 19:14 Temperature 98.9 F 99.1 F Pulse Rate 69 81 84 Respiratory Rate 16 16 18 Blood Pressure 132/83 118/76 135/89 Pulse Oximetry 96 98 97 07/21/18 00:00 07/21/18 03:36 07/21/18 07:27 Temperature 97.8 F 99.3 F 98.8 F Pulse Rate 73 80 84 Respiratory Rate 19 18 18 Blood Pressure 133/87 129/86 118/83 Pulse Oximetry 94 L 94 L 96 07/21/18 07:52 Temperature Pulse Rate 70 Respiratory Rate Blood Pressure Pulse Oximetry Intake & Output 07/20/18 07/21/18 07/21/18 18:59 06:59 18:59 Intake Total 620 / 620 971.2 / 971.2 Output Total 2320 / 2320 Balance 620 / 620 -1348.8 / -1348.8 Weight 73.03 kg Intake: IV 611.2 / 611.2 MVI-12 Inj 10 ML Folvite Inj 1 510.2 / 510.2 MG In NS Inj 500 ML @ 125 mls/ hr IV.SIG DAILY@2000 [facility] Rx#: [id number] Thiamine Inj 100 MG In NS Inj 101 / 101 100 ML @ 100 mls/hr IV.SIG DAILY@1800 [facility] Rx#:[id number] Oral 120 / 120 360 / 360 Other 500 / 500 Output: Urine 2320 / 2320 Other: Other Intake Source Saline Solution # Voids 4 Date of Last Bowel Movement 07/19/18 - Constitutional no acute distress - Routine Respiratory Exam Present: CTA bilaterally - Routine Cardiovascular Exam Present: RRR - Routine Abdominal Exam Present: soft - Routine Extremities Exam Comments: no pedal edema. - Routine Neurological Exam Present: alert, oriented X3 Results Procedures completed during hospitalization: none. Labs on day of discharge: Labs from last 24 hours 07/21/18 06:41 Potassium 3.5 Preliminary micro results at discharge 07/19/18 17:45 Aerobic Blood Culture - Preliminary Blood - Peripheral No growth in 1 day Anaerobic Blood Culture - Preliminary No growth in 1 day 07/19/18 17:40 Aerobic Blood Culture - Preliminary Blood - Peripheral No growth in 1 day Anaerobic Blood Culture - Preliminary No growth in 1 day - Impressions ITS Impressions Chest X-Ray 07/18/18 20:52 CONCLUSION: No evidence of acute cardiopulmonary disease. Myocardial Perfusion Scan Nuc Med 07/19/18 08:37 CONCLUSION: 1. Small area of mild increased activity in the apical portion of the septum on the rest images over the stress images which is borderline for a small area of ischemia. 2. The ejection fraction is normal. Chest CTA 07/20/18 00:00 CONCLUSION: 1. No pulmonary embolus. 2. Minimal linear atelectasis or scarring at the lung bases. Discharge Plan - Discharge Disposition Patient Disposition: 01 Discharge Home - Physicians Team Primary Care Provider: Terri Lund Attending Provider: Kimberly Royal Other Providers: Ricardo Garcia MD
== END 2018-07-21 09:38 | disposition home or self-care (01) ==
LOC: NEPE 20:23 → NEDA 20:23 → NEPHCDU 23:33
PROVIDERS: ADMIT Internal Medicine; ATTEND Internal Medicine